=== PATIENT | male | born 1990 | race Hispanic/Latino ===

== ENCOUNTER 2022-05-31 09:18 | Outpatient (CLI) | payer OTHER ==
--- NOTE | 2022-05-31 11:06 | XRay Report ---
CHEST 2 VIEWS INDICATION / CLINICAL INFORMATION: [facility] COVID EFFECTS. COMPARISON: None available. FINDINGS: SUPPORT DEVICES: None. HEART / MEDIASTINUM: No significant abnormality. LUNGS / PLEURA: No significant pulmonary or pleural abnormality. No pneumothorax. ADDITIONAL FINDINGS: No significant additional findings. IMPRESSION: Unremarkable chest x-ray BILATERAL KNEES 2 VIEWS INDICATION: Bilateral knee pain. COMPARISON: None. IMPRESSION: No osseous abnormality or joint pathology is detected. The soft tissues are unremarkabl e. Signer Name: Yared Garibay Jr, MD Signed: 05/31/2022 11:02 AM Workstation Name: [id number]
--- NOTE | 2022-05-31 11:06 | XRay Report ---
CHEST 2 VIEWS INDICATION / CLINICAL INFORMATION: [facility] COVID EFFECTS. COMPARISON: None available. FINDINGS: SUPPORT DEVICES: None. HEART / MEDIASTINUM: No significant abnormality. LUNGS / PLEURA: No significant pulmonary or pleural abnormality. No pneumothorax. ADDITIONAL FINDINGS: No significant additional findings. IMPRESSION: Unremarkable chest x-ray BILATERAL KNEES 2 VIEWS INDICATION: Bilateral knee pain. COMPARISON: None. IMPRESSION: No osseous abnormality or joint pathology is detected. The soft tissues are unremarkabl e. Signer Name: aYred Garibay Jr, MD Signed: 05/31/2022 11:02 AM Workstation Name: [id number]
== END 2022-05-31 09:19 | disposition home or self-care (01) ==
LOC: XRAY 09:18
PROVIDERS: ATTEND Internal Medicine
DX: Z02.71 Encounter for disability determination (principal); M25.562 Pain in left knee; M25.561 Pain in right knee
CPT/HCPCS: 71046; 73565